=== PATIENT | female | born 1975 | race Caucasian/White ===

== ENCOUNTER 2020-12-09 14:49 | Inpatient (IN) ==
[2020-12-09] MEDS ORDERED: MoRPHine SULFATE 4 MG/ML 1 ML CARP\\VIAL IV STA (17:05)
[2020-12-09] MEDS ORDERED: SODIUM CHLORIDE 0.9% 1000ML 2,000 ML IV ONE (17:05)
[2020-12-09] MEDS ORDERED: KETOROLAC TROMETHAMINE 15 MG/ML VIAL IV ONE (17:05)
[2020-12-09] MEDS ORDERED: ONDANSETRON INJ 2 MG/ML 2 ML VIAL IV STA (17:05)
--- NOTE | 2020-12-09 17:15 | Emergency Department Note ---
Impression & Plan Appendicitis, Abdominal pain ED Provider Note NAME: MADDIE MONSIVAIS AGE: 45 SEX: F : 1975 ARRIVES VIA: Walk-In INFORMANT: Patient, ED PROVIDER(S): [facility] DO CHIEF COMPLAINT: abdominal pain HPI: Patient is a 45-year-old female who presents to the ER for lower abdominal pain. This has been present for the past 2 weeks. It is constant and described as a crampy pain. She admits to some nausea and last episode of vomiting was on Tuesday. Denies any headache or change in vision. No chest pain or shortness of breath. No dysuria, urgency, or frequency with exception of when she just urinated today she had some dysuria. No other exacerbating or remitting factors in regards to the abdominal pain. She has been taking Tylenol and Motrin. She has been using heating pad with minimal improvement. ROS: See above HPI for pertinent positives & negatives. A total of 10 systems reviewed and were otherwise negative. PAST MEDICAL HISTORY:See Below PAST SURGICAL HISTORY:See Below FAMILY HISTORY:See Below SOCIAL HISTORY:See Below HOME MEDICATIONS:See Below ALLERGIES:See Below VITALS:See Below PHYSICAL EXAMINATION: GENERAL: Sitting up in bed, alert, well appearing, well nourished, no distress, non-toxic EYE EXAM: normal conjunctiva. PERRL and EOM's grossly intact. OROPHARYNX: no exudate, no erythema, lips, buccal mucosa, and tongue normal and mucous membranes are moist NECK: supple, no nuchal rigidity, no adenopathy, non-tender LUNGS: Clear to auscultation. Normal chest wall mechanics HEART: no murmurs, S1 normal and S2 normal ABDOMEN: abdomen soft, non-tender, normo-active bowel sounds, no masses, no rebound or guarding. BACK: Back is symmetrical on inspection and there is no deformity, no midline tenderness, no CVA tenderness. SKIN: no rashes and no bruising UPPER EXTREMITIES: upper extremities are grossly normal. LOWER EXTREMITIES: No pitting edema. NEURO EXAM: Normal sensorium, cranial nerves II-XII grossly intact, normal speech, no gross weakness of arms, no gross weakness of legs. MEDICAL DECISION MAKING: Patient is a 45-year-old female who presents the ER for abdominal pain which been present for the past 2 weeks. IV was established blood work obtained. Labs show leukocytosis of 2000. No significant anemia. BMP with slightly elevated chloride. LFTs bilirubin was unremarkable. Lipase was normal. UA was contaminated. was negative. CT abdomen pelvis suggest a perforated appendicitis. She was given IV antibiotics. Updated bedside. Discussed with general surgery admitted for further work-up. Triage Nursing notes reviewed. Limited review of prior medical records performed Vital Signs: reviewed and remarkable for hypotensive Differential diagnosis: Differential diagnoses includes but is not limited to gastritis, peptic ulcer disease, GERD, gallbladder disease, pancreatitis, small bowel obstruction, acute coronary syndrome, pericarditis, ischemic bowel, irritable bowel disease, irritable bowel syndrome, appendicitis, diverticulitis, malignancy, hernia, urinary tract infection, torsion, perforation, trauma, infectious. ER treatment provided: See below Diagnostics interpreted by me: ECG: none Cardiac Monitoring: An order was placed for continuous cardiac monitoring. The monitor shows a rate of 82 with sinus rhythm. Laboratory studies: As stated above and show below. Imaging studies: CT abdomen pelvis suggest appendicitis Consultation(s): Discussed with Dewayne Barnhart for further evaluation Procedures: none Critical Care: None Past Med/Surg History Medical History Central obesity Insulin resistance Social History Smoking Status: Never smoker Hx Alcohol Use: No Preferred Language: Upper Sorbian Feels Safe at Home: Yes Allergies Allergies Allergy/AdvReac Type Severity Reaction Status Date / Time No Known Allergies Allergy Verified 11/30/19 10:39 Home Meds Home Medications Medication Instructions Recorded Confirmed norethindrone (contraceptive) 0.35 0.35 mg PO DAILY 11/29/19 11/29/19 mg tablet Results & Data (ED) Vital Signs Vital Signs - 24 hr 12/09/20 14:59 12/09/20 17:31 12/09/20 20:05 Temperature 36.5 C Temperature Source Temporal Artery Scan Pulse Rate 84 Pulse Rate [Finger] 86 Respiratory Rate 14 18 18 Blood Pressure 90/57 L Blood Pressure [Left Arm] 117/66 Blood Pressure Mean 68 Blood Pressure Mean [Left Arm] 83 Pulse Oximetry 99 96 Oxygen Delivery Method Room Air Sepsis Recent Fever Within 48 Hours No Sepsis New/Unexplained Change in Mental Status No Sepsis Action Taken by Nursing No Action Required Laboratory Data Result diagrams: 12/09/20 17:21 12/09/20 17:21 Lab Results 12/09/20 12/09/20 12/09/20 Range/Units 17:21 17:21 17:21 WBC 17.35 H (4.8-10.8) K/uL RBC 3.86 L (4.2-5.4) M/uL Hgb 12.7 (12.0-16.0) g/dL Hct 36.9 L (37-47) % MCV 95.6 (80-100) fL MCH 32.9 (25-34) pg MCHC 34.4 (32-36) g/dL RDW Std Deviation 44.1 (36.4-46.3) fL RDW Coeff of Scott 12.6 (11.5-14.5) % Plt Count 336 (130-400) K/uL MPV 10.2 (7.4-10.4) fL Immature Gran % (Auto) 0.3 % Neut % (Auto) 91.0 % Lymph % (Auto) 3.5 % [place] % (Auto) 5.1 % Eos % (Auto) 0.0 % Baso % (Auto) 0.1 % Neut # (Auto) 15.81 H (1.4-6.5) K/uL Lymph # (Auto) 0.60 L (1.2-3.4) K/uL [place] # (Auto) 0.88 H (0.11-0.59) K/uL Eos # (Auto) 0.00 (0-0.5) K/uL Baso # (Auto) 0.01 (0-0.2) K/uL Immature Gran # (Auto) 0.05 H (0.00-0.02) K/uL Sodium 138 (136-145) mmol/L Potassium 3.7 (3.5-5.1) mmol/L Chloride 111 H (98-107) mmol/L Carbon Dioxide 21 (21-32) mmol/L Anion Gap 6.0 (3-11) BUN 11 (7-18) mg/dl Creatinine 0.67 (0.6-1.2) mg/dl Est Cr Clr Drug Dosing Not Reportable Est GFR ( Amer) 123.9 ml/min Est GFR (Non-Af Amer) 106.9 ml/min BUN/Creatinine Ratio 16.8 (10-20) Glucose 108 H (70-99) mg/dl Calcium 8.8 (8.5-10.1) mg/dl Total Bilirubin 0.5 (0.2-1) mg/dl AST 7 L (15-37) U/L ALT 16 (12-78) U/L Alkaline Phosphatase 92 (45-117) U/L Total Protein 7.6 (6.4-8.2) gm/dl Albumin 3.5 (3.4-5.0) gm/dl Globulin 4.1 H (2.5-4.0) gm/dl Albumin/Globulin Ratio 0.8 L (0.9-2) Lipase 46 L (73-393) U/L Urine Color Dark Yellow Urine Appearance Clear (Clear) Urine pH 6.0 (4.5-7.5) Ur Specific [place] 1.030 (1.000-1.030) Urine Protein Negative (Negative) Urine Glucose (UA) Negative (Negative) Urine Ketones Trace H (Negative) Urine Blood 2+ H (Negative) Urine Nitrite Negative (Negative) Urine Bilirubin Negative (Negative) Urine Urobilinogen Negative (Negative) Ur Leukocyte Esterase Negative (Negative) Urine WBC (Auto) 10-30 H (0-5) /hpf Urine RBC (Auto) 10-30 H (0-4) /hpf U Hyaline Cast (Auto) 5-10 H (0-5) /lpf U Epithel Cells (Auto) >30 H (0-5) /lpf Urine Bacteria (Auto) 1+ H (Negative) Ur Renal Epithelial Cell Not Reportable POC Ur Test (NEG) COVID-19 Eval Order SARS-CoV-2 (PCR) (Negative) 12/09/20 12/09/20 12/09/20 Range/Units 19:50 19:50 Unknown WBC (4.8-10.8) K/uL RBC (4.2-5.4) M/uL Hgb (12.0-16.0) g/dL Hct (37-47) % MCV (80-100) fL MCH (25-34) pg MCHC (32-36) g/dL RDW Std Deviation (36.4-46.3) fL RDW Coeff of Scott (11.5-14.5) % Plt Count (130-400) K/uL MPV (7.4-10.4) fL Immature Gran % (Auto) % Neut % (Auto) % Lymph % (Auto) % [place] % (Auto) % Eos % (Auto) % Baso % (Auto) % Neut # (Auto) (1.4-6.5) K/uL Lymph # (Auto) (1.2-3.4) K/uL [place] # (Auto) (0.11-0.59) K/uL Eos # (Auto) (0-0.5) K/uL Baso # (Auto) (0-0.2) K/uL Immature Gran # (Auto) (0.00-0.02) K/uL Sodium (136-145) mmol/L Potassium (3.5-5.1) mmol/L Chloride (98-107) mmol/L Carbon Dioxide (21-32) mmol/L Anion Gap (3-11) BUN (7-18) mg/dl Creatinine (0.6-1.2) mg/dl Est Cr Clr Drug Dosing Est GFR ( Amer) ml/min Est GFR (Non-Af Amer) ml/min BUN/Creatinine Ratio (10-20) Glucose (70-99) mg/dl Calcium (8.5-10.1) mg/dl Total Bilirubin (0.2-1) mg/dl AST (15-37) U/L ALT (12-78) U/L Alkaline Phosphatase (45-117) U/L Total Protein (6.4-8.2) gm/dl Albumin (3.4-5.0) gm/dl Globulin (2.5-4.0) gm/dl Albumin/Globulin Ratio (0.9-2) Lipase (73-393) U/L Urine Color Urine Appearance (Clear) Urine pH (4.5-7.5) Ur Specific [place] (1.000-1.030) Urine Protein (Negative) Urine Glucose (UA) (Negative) Urine Ketones (Negative) Urine Blood (Negative) Urine Nitrite (Negative) Urine Bilirubin (Negative) Urine Urobilinogen (Negative) Ur Leukocyte Esterase (Negative) Urine WBC (Auto) (0-5) /hpf Urine RBC (Auto) (0-4) /hpf U Hyaline Cast (Auto) (0-5) /lpf U Epithel Cells (Auto) (0-5) /lpf Urine Bacteria (Auto) (Negative) Ur Renal Epithelial Cell POC Ur Test NEG (NEG) COVID-19 Eval Order Covid19 at [facility] SARS-CoV-2 (PCR) NEGATIVE (Negative) Administered Medications Discontinued Medications Sodium Chloride (Nss 1000ml) 2,000 mls @ 999 mls/hr IV .Q2H1M ONE Stop: 12/09/20 19:05 Last Infusion: 12/09/20 19:27 Dose: 0 mls/hr Documented by: [id number] Admin: 12/09/20 17:27 Dose: 999 mls/hr Documented by: [id number] Piperacillin Sod/Tazobactam Sod (Zosyn) 4.5 gm in 120 mls @ 240 mls/hr IV NOW ONE Stop: 12/09/20 19:59 Last Infusion: 12/09/20 20:33 Dose: 0 mls/hr Documented by: [id number] Admin: 12/09/20 20:03 Dose: 240 mls/hr Documented by: [id number] Ioversol (Optiray 320 100ml) 94 ml IV ONCE ONE Stop: 12/09/20 18:45 Last Admin: 12/09/20 18:44 Dose: 1 ml Documented by: [id number] Ketorolac Tromethamine (Ketorolac Tromethamine 15 Mg/Ml Vial) 15 mg IV NOW ONE Stop: 12/09/20 17:06 Last Admin: 12/09/20 17:28 Dose: 15 mg Documented by: [id number] Morphine Sulfate (Morphine Sulfate 4 Mg/Ml 1 Ml Carp\Vial) 4 mg IV NOW STA Stop: 12/09/20 17:06 Last Admin: 12/09/20 17:28 Dose: 4 mg Documented by: [id number] Ondansetron HCl (Ondansetron Inj 2 Mg/Ml 2 Ml Vial) 4 mg IV NOW STA Stop: 12/09/20 17:06 Last Admin: 12/09/20 17:28 Dose: 4 mg Documented by: [id number] Imaging Data Radiologist's Impression: Abdomen/Pelvis CT 12/09/20 17:05 CT abd pelvis IV con only CLINICAL HISTORY: diffuse lower abd pain COMPARISON STUDY: None. TECHNIQUE: Patient was scanned in a dynamic helical fashion during intravenous administration of 94 cc of Optiray 320 A dose lowering technique was utilized adhering to the principles of ALARA. CT DOSE: 676.47 mGy.cm FINDINGS: Lower chest: The heart is normal in size and configuration, without pericardial effusion. The lung bases and pleural spaces are clear. Liver: The contrast-enhanced liver is normal in size, contour, and attenuation. There is no intrahepatic biliary ductal dilatation. The hepatic veins and portal veins are patent. Gallbladder: Cholelithiasis Spleen: Minimally enlarged measuring 12.7 cm. Pancreas: Unremarkable. Adrenal glands: Unremarkable. Kidneys: There is symmetric renal cortical enhancement. The kidneys are normal in size without hydronephrosis. Bowel: There are no transition zones to indicate bowel obstruction. There is no evidence of acute diverticulitis. There is an ill-defined fluid collection within the upper pelvic central mesentery measuring 4 cm. This likely represents a phlegmon/developing abscess. This abuts a mildly dilated appendix measuring 9 mm. A perforated tip appendicitis must be considered. Surgical consultation recommended. There is mild thickening of the adjacent sigmoid bowel loops. This is likely reactive. Peritoneum: There is a small amount of free pelvic fluid, as well as fluid within the right adnexa. Vasculature: The abdominal aorta is normal in course and caliber. Adenopathy: None. Pelvic viscera: The bladder, and pelvic viscera are unremarkable. Skeletal structures: No destructive osseous lesions are seen. IMPRESSION: 1. Ill-defined 4 cm upper pelvic fluid collection which abuts a mildly dilated appendix measuring 9 mm. A perforated tip appendicitis with a developing phlegmo n/abscess must be considered. Surgical consultation recommended. 2. Cholelithiasis 3. No evidence of bowel obstruction. ACT 112: Negative or not required by law. Electronically signed by: Yifna Mackenzie M.D. 12/09/2020 7:24 PM Discharge Plan Visit Data Chief Complaint: Abdominal Pain Stated Complaint: ABDOMINAL PAIN, LIGHT HEADED, WEAKNESS, NAUSEA ED Provider: [facility] Discharge Problem: Appendicitis, Abdominal pain Forms Stand Alone Forms: LK FREEMAN Prescriptions Prescriptions: No Action norethindrone (contraceptive) [Gypsy] 0.35 mg tablet 0.35 mg PO DAILY RF: 0 Discharge Problem: Appendicitis Qualifiers: Appendicitis type: acute appendicitis Acute appendicitis type: other Qualified Code(s): K35.890 - Other acute appendicitis without perforation or gangrene Abdominal pain Qualifiers: Abdominal location: unspecified location Qualified Code(s): R10.9 - Unspecified abdominal pain
[2020-12-09 17:34] LABS: Hematocrit (blood only) 36.9 % (37-47); Hemoglobin 12.7 g/dL (12.0-16.0); Mean Corpuscular Hemoglobin 32.9 pg (25-34); Mean Corpuscular Hgb Conc 34.4 g/dL (32-36); Mean Corpuscular Volume 95.6 fL (80-100); Mean Platelet Volume 10.2 fL (7.4-10.4); Platelet Count 336 K/uL (130-400); RDW Coefficient of Variation 12.6 % (11.5-14.5); RDW Standard Deviation 44.1 fL (36.4-46.3); Red Blood Count 3.86 M/uL (4.2-5.4); White Blood Count 17.35 K/uL (4.8-10.8)
[2020-12-09 17:50] LABS: Basophils # (auto) 0.01 K/uL (0-0.2); Basophils % (auto) 0.1 %; Immature Granulocytes # (auto) 0.05 K/uL (0.00-0.02); Immature Granulocytes % (auto) 0.3 %; Lymphocytes % (auto) 3.5 %; Monocytes # (auto) 0.88 K/uL (0.11-0.59); Monocytes % (auto) 5.1 %; Neutrophils # (auto) 15.81 K/uL (1.4-6.5)
[2020-12-09 17:52] LABS: Appearance Urine Clear (Clear); Bilirubin Urine Negative (Negative); Blood Urine 2+ (Negative); Color Urine Dark Yellow; Epithelial Cell Urine Auto >30 /lpf (0-5); Glucose Urine UA Negative (Negative); Ketones Urine Trace (Negative); Leukocyte Esterase Urine Negative (Negative); Nitrite Urine Negative (Negative); Protein Urine Negative (Negative); Urobilinogen Urine Negative (Negative)
[2020-12-09 18:05] LABS: Albumin Level 3.5 gm/dl (3.4-5.0); BUN Creatinine Ratio 16.8 (10-20); Blood Urea Nitrogen 11 mg/dl (7-18); Calcium 8.8 mg/dl (8.5-10.1); Carbon Dioxide 21 mmol/L (21-32); Chloride 111 mmol/L (98-107); Est GFR (African American) 123.9 ml/min; Est GFR (Non-African American) 106.9 ml/min; Glucose 108 mg/dl (70-99); Lipase 46 U/L (73-393); Potassium 3.7 mmol/L (3.5-5.1); Sodium 138 mmol/L (136-145)
[2020-12-09 18:08] LABS: Alanine Aminotransferase 16 U/L (12-78); Albumin Globulin Ratio 0.8 (0.9-2); Alkaline Phosphatase 92 U/L (45-117); Aspartate Aminotransferase 7 U/L (15-37); Bilirubin,Total 0.5 mg/dl (0.2-1); Globulin 4.1 gm/dl (2.5-4.0); Total Protein 7.6 gm/dl (6.4-8.2)
[2020-12-09 18:17] LABS: Bacteria Urine Automated 1+ (Negative)
[2020-12-09] MEDS ORDERED: OPTIRAY 320 100ml IV ONE (18:44)
--- NOTE | 2020-12-09 19:25 | CT Scan Report ---
CT abd pelvis IV con only CLINICAL HISTORY: diffuse lower abd pain COMPARISON STUDY: None. TECHNIQUE: Patient was scanned in a dynamic helical fashion during intravenous administration of 94 c c of Optiray 320 A dose lowering technique was utilized adhering to the principles of ALARA. CT DOSE: 676.47 mGy.cm FINDINGS: Lower chest: The heart is normal in size and configuration, without pericardial effusion. The lung ba ses and pleural spaces are clear. Liver: The contrast-enhanced liver is normal in size, contour, and attenuation. There is no intrahepa tic biliary ductal dilatation. The hepatic veins and portal veins are patent. Gallbladder: Cholelithiasis Spleen: Minimally enlarged measuring 12.7 cm. Pancreas: Unremarkable. Adrenal glands: Unremarkable. Kidneys: There is symmetric renal cortical enhancement. The kidneys are normal in size without hydron ephrosis. Bowel: There are no transition zones to indicate bowel obstruction. There is no evidence of acute div erticulitis. There is an ill-defined fluid collection within the upper pelvic central mesentery measu ring 4 cm. This likely represents a phlegmon/developing abscess. This abuts a mildly dilated appendix measuring 9 mm. A perforated tip appendicitis must be considered. Surgical consultation recommended. There is mild thickening of the adjacent sigmoid bowel loops. This is likely reactive. Peritoneum: There is a small amount of free pelvic fluid, as well as fluid within the right adnexa. Vasculature: The abdominal aorta is normal in course and caliber. Adenopathy: None. Pelvic viscera: The bladder, and pelvic viscera are unremarkable. Skeletal structures: No destructive osseous lesions are seen. IMPRESSION: 1. Ill-defined 4 cm upper pelvic fluid collection which abuts a mildly dilated appendix measuring 9 m m. A perforated tip appendicitis with a developing phlegmon/abscess must be considered. Surgical cons ultation recommended. 2. Cholelithiasis 3. No evidence of bowel obstruction. ACT 112: Negative or not required by law. Electronically signed by: Yifan Mackenzie M.D. 12/09/2020 7:24 PM
[2020-12-09] MEDS ORDERED: PIPERACILL/TAZOBAC CONSULT ACTIVE PRN (19:30)
[2020-12-09] MEDS ORDERED: PIPERACILLIN/TAZOBACTAM 4.5 GM/120 ML BAG IV ONE (19:30)
--- NOTE | 2020-12-09 20:02 | History & Physical Report ---
Date of Service December 09, 2020 Assessment & Plan (1) Appendicitis: Will admit to hospital and proceed with appendectomy. Pt. has received abx, in the form of zosyn which will continue. Keep NPO until after surgery Will follow-up on results of COVID test Further recommendations will be based on operative findings and post-op course History of Present Illness Chief Complaint: Abdominal Pain Primary Care Provider: NO PCP 45 year old female presented to the ED due to abdominal pain x 2 weeks. She was seen in the ED at [place] where an US showed ovarian cysts. Her pain has persisted so she came to the ED at [facility]. Her pain is worse with movement. She has associated N/V. No fevers reported. She has had a prior laparoscopy, but no other abdominal surgeries. Her most recent oral intake was earlier this morning. In the ED, a Ct scan showed a dilated appendix with concern for perforation. Her WBC was 17.3. test was (-). COVID test is pending. At the time of my exam she was in no distress. Allergies Allergy/AdvReac Type Severity Reaction Status Date / Time No Known Allergies Allergy Verified 11/30/19 10:39 Home Medications Medication Instructions Recorded Confirmed Type norethindrone (contraceptive) 0.35 0.35 mg PO DAILY 11/29/19 11/29/19 History mg tablet Past Med/Surg History Medical History Central obesity Insulin resistance Social History Smoking Status: Never smoker Hx Alcohol Use: No Preferred Language: Wolof Feels Safe at Home: Yes Review of Systems Constitutional: + body aches; no fever and no chills Eyes: no diplopia Ear, Nose, Mouth, Throat: no ear pain Respiratory: no cough and no dyspnea Cardiovascular: no chest pain Gastrointestinal: + abdominal pain, + nausea and + vomiting Genitourinary: no dysuria Musculoskeletal: no back pain Integumentary: no rash Neurologic: no localized weakness Physical Exam Constitutional: well developed and well nourished; no acute distress Eyes: no conjunctival abnormality ENMT: Ears: no hearing impairment Neck: trachea midline Respiratory: normal respiratory effort; no respiratory distress and no labored breathing Cardiovascular: Rate/Rhythm: regular rate and regular rhythm Gastrointestinal (Abdomen): Percussion/Palpation: + abdomen tender (RLQ tenderness (+) rebound tenderness) and abdomen soft Musculoskeletal: no calf pain Skin: no rashes, warm and dry Neurologic: moves all extremities Psychiatric: A+Ox3, euthymic affect Results & Data Results & Data ([facility]) Vital Signs (Past 12 Hours) Vital Signs Temp Pulse Resp BP Pulse Ox 12/09/20 17:31 18 12/09/20 14:59 36.5 C 84 14 90/57 L 99 Supervising Physician Co-Signing Physician Notes as per Dewayne DELA CRUZ tenderness and rebound rlq ct scan noted plan lap appy possible open risk and complication explained to pt and SO all question answered including anticipated recovery time permit signed PG Care Time/CCT Total # of Minutes Spent Total Time Spent with Patient: Total time spent is greater than 50% in coordination of care (as documented) at patient's floor/unit and/or counseling patient: Coding Level of Care Code INT OBSERVATION CARE 70M LVL 3 Diagnoses Appendicitis K37
[2020-12-09] MEDS ORDERED: ePHEDrine sulfate 50 MG/ML AMP IV PRN (20:18)
[2020-12-09] MEDS ORDERED: ONDANSETRON INJ 2 MG/ML 2 ML VIAL IV PRN (20:18)
[2020-12-09] MEDS ORDERED: fentaNYL citrate 100 MCG/2 ML VIAL IV PRN (20:18)
[2020-12-09] MEDS ORDERED: ATROPINE SULFATE 0.1 MG/ML 10ML SYR IV PRN (20:18)
--- NOTE | 2020-12-09 20:19 | Anesthesiology Consultation ---
Date of Service December 09, 2020 Assessment & Plan (1) Encounter for pre-operative examination: Chart Review Chart Review: maintenance shop manager initiated History Height/Weight Height: 5 ft 4 in Weight: 81.647 kg Allergies Allergy/AdvReac Type Severity Reaction Status Date / Time No Known Allergies Allergy Verified 11/30/19 10:39 Medications Home Medications Medication Instructions Recorded Confirmed Last Taken norethindrone (contraceptive) 0.35 0.35 mg PO DAILY 11/29/19 11/29/19 Unknown mg tablet Past Medical History Medical History Central obesity Insulin resistance Social History Smoking Status: Never smoker Hx Alcohol Use: No Physical Exam Vital Signs Last Vital Signs Temp 97.7 F 12/09/20 14:59 Pulse 86 12/09/20 20:05 Resp 18 12/09/20 20:05 BP 117/66 12/09/20 20:05 Pulse Ox 96 12/09/20 20:05 Testing Laboratory Results 12/09/20 17:21 12/09/20 17:21 Urine Color Dark Yellow 12/09/20 17:21 Urine Appearance Clear (Clear) 12/09/20 17:21 Urine pH 6.0 (4.5-7.5) 12/09/20 17:21 Ur Specific [place] 1.030 (1.000-1.030) 12/09/20 17:21 Urine Protein Negative (Negative) 12/09/20 17:21 Urine Glucose (UA) Negative (Negative) 12/09/20 17:21 Urine Ketones Trace (Negative) H 12/09/20 17:21 Urine Nitrite Negative (Negative) 12/09/20 17:21 Ur Leukocyte Esterase Negative (Negative) 12/09/20 17:21 Urine WBC (Auto) 10-30 /hpf (0-5) H 12/09/20 17:21 Urine RBC (Auto) 10-30 /hpf (0-4) H 12/09/20 17:21 U Hyaline Cast (Auto) 5-10 /lpf (0-5) H 12/09/20 17:21 U Epithel Cells (Auto) >30 /lpf (0-5) H 12/09/20 17:21 Urine Bacteria (Auto) 1+ (Negative) H 12/09/20 17:21 12/09/20 Unknown POC Ur Test NEG
[2020-12-09] MEDS ORDERED: PROPOFOL IV EMULSION 10 MG/ML 20 ML VIAL IV ONE (20:31)
[2020-12-09] MEDS ORDERED: LIDOCAINE 2% 2 ML VIAL/AMP(20MG/ML) INFIL ONE (20:31)
[2020-12-09] MEDS ORDERED: fentaNYL citrate 100 MCG/2 ML VIAL ONE ×3 (20:31→22:50)
[2020-12-09] MEDS ORDERED: LIDOCAINE/EPINEPHRINE 1% 20 ML VIAL ONE ×2 (21:36→21:45)
[2020-12-09] MEDS ORDERED: DEXAMETHASONE SOD INJ 4 MG/ML VIAL ONE (21:49)
[2020-12-09] MEDS ORDERED: HYDROmorphone INJ 2 MG/ML SYR/VIAL ONE (22:18)
[2020-12-09] MEDS ORDERED: ROCURONIUM BROMIDE 10 MG/ML 5 ML VIAL IV ONE (23:41)
[2020-12-09] MEDS ORDERED: GLYCOPYRROLATE 0.2 MG/ML VIAL ONE (23:42)
[2020-12-09] MEDS ORDERED: ONDANSETRON INJ 2 MG/ML 2 ML VIAL ONE (23:42)
[2020-12-09] MEDS ORDERED: NEOSTIGMINE METHYLSULFATE 1 MG/ML 10ML VIAL ONE (23:42)
--- NOTE | 2020-12-09 23:57 | Post Operative Brief Note ---
PG Immediate Post Op with CF Date of Surgery December 09, 2020 Pre & Post Diagnosis Operation Date: 12/09/20 21:15 Pre-Op Diagnosis: Appendicitis Post-Op Diagnosis: Ruptured appendix I identified the patient and participated in the time-out.: Yes Procedure Operation Date: 12/09/20 21:15 Actual Procedures p Laparoscopic Appendectomy, converted to Open Cecectomy(Not Applicable) - Owen Leon MD, FACS Surgeon Owen Leon MD, FACS Corrections Unit Supervisor chey bose Estimated Blood Loss 200 Findings Consistent with Post-Op Diagnosis Specimens Specimen Description: A: appendix B: terminal ileum and cecum Culture 1 abdominal fluid Drains Cr-[place] Drain (19 lolita) and Wan Drain (1/2 inch)
--- NOTE | 2020-12-10 00:31 | Operative Report ---
PG Post Operative Report Pre & Post Diagnosis Operation Date: 12/09/20 21:15 Pre-Op Diagnosis: Appendicitis Post-Op Diagnosis: Ruptured appendix I identified the patient and participated in the time-out.: Yes Procedure Operation Date: 12/09/20 21:15 Actual Procedures p Laparoscopic Appendectomy, converted to Open Cecectomy(Not Applicable) - Owen Leon MD, FACS The patient was brought into the operative field general trach anesthesia supine position the abdomen was prepped byline solution properly draped systemic antibiotics on board patient identified timeout was had This pleasant 45-year-old female had been seen in [place] 2 weeks ago for abdominal pain at that time a CAT scan was not obtained but ultrasound revealed some ovarian cyst and asked that she follow-up with her balance clerk an appointment for December 29 in meantime the patient has progressively became more symptomatic was seen here in the emergency room and a CAT scan revealed what appeared finding with ruptured appendix with inflammatory changes and some fluid around the area therefore elected to proceed with laparoscopic appendectomy recommendation possible open permit a small incision supraumbilically sufficient enough for 5 mm trocar after a Veress needle inserted followed by CO2 5 mm trocar followed by the scope point of interest bacteroids identified we could see the right lower quadrant could see the cecum up and down towards the pelvic area the uterus was easily appreciated and appear to be some cloudy fluid adjacent to it where the cul-de-sac. Also it seems like that the cecum itself in the terminal ileum was strictly adherent to the right lower quadrant direct visualization I placed a 5 mm right upper quadrant port with preemptive local analgesic and converted the umbilical port to 11 mm trocar and direct visualization then placed a 5 mm trocar in the pelvic area correction between the symphysis pubis and umbilical area these are all under direct visualization the camera was placed in this port we maneuvered with the umbilical trocar right upper trocar the cecum was able to identify the takeoff of the appendix with that apparently grossly normal then the appendix tip down towards the the gutter and the terminal ileum was strictly adherent to that area had a thick inflammatory fatty tissue around this terminal ileum down into this gutter we then tried to first well created a window between the cecum and the appendix which was easily appreciated and then fired a a purple DEONNA at the base the appendix from the cecum which had good tissue was nonfriable but at this point we then obtained her attention towards the distal aspect of this inflammatory mass we irrigated the right lower quadrant and placed in the [place] clamp and took some cultures of the fluid and we spent a good portion to try to free up bluntly the terminal ileum from the pelvic brim could identify the ovary which was way underneath it and appeared free of any pathology but this area was concrete in nature we could not maneuver it very easily therefore I elected to converted to an open procedure after trying to manipulate this with some time with little gain we made a standard right lower quadrant incision at [facility]'s point Emil-Herbie incision then needed to have a Nik extension patient had about 4 inches of subcutaneous fatty tissue until we got to the abdominal wall at this point with muscle split as much as possible entering the peritoneal cavity and using the Tiago Lynn Deavers we are able to enter the peritoneal cavity we mobilized the cecum by dividing the white line of Told[place] and able to elevated out of the wound with this came to the terminal ileum which is stated was quite inflamed and its takeoff from the cecum but blunt dissection down into the gutter and the pelvic brim this was concrete in nature we then were able to elevate up the terminal ileum and the cecum out of the wound and identified that the terminal ileum was part of this inflammatory mass very indurated there was an area there I was not sure if this was ischemic in nature just by freeing it up but the terminal ileum was quite thickened and I was worried about the the vasculature at this time even though we had not entered the lumen I elected at this point then to remove the appendix what ever was left of it and then resected the terminal ileum approximately 6 inches or so from the ileocecal valve and an area that was free of any inflammation of note this did not appear to be anywhere resembles her Crohn's disease and seem to be all inflammation related to the appendix and free freed up the terminal ileum up to the cecal area I divided the mesentery ligated with 2-0 silk sutures and resected the cecum just to the distal of the ileocecal valve we used the DEONNA stapler of these 2 areas we at this point closed the mesentery with interrupted 3-0 silk suture oversewed the 2 staple line with 3-0 silk suture into the [id number] an astomosis using 3-0 silk outer layer 3-0 chromic inner layer and hemostasis anastomosis was checked for patency appears satisfactory mesentery was closed we return everything in the abdominal cavity we irrigated the pelvic then I elected to drain this area with a [place] drain which was bilateral superior lateral to the incision placed on the pelvic area attaching skin edge with 2-0 silk suture we then closed the abdominal wound incision using 905 for posterior rectus and peritoneum #1 PDS interrupted sutures for the internal Bleich and external Bleich fascia anterior rectus fascia subcutaneous tissue irrigated 5/8 of an inch [place] was placed in the subcu touch both edge with 3-0 silk suture julián for skin edges and closed the umbilical opening with #0 Vicryl suture interrupted sutures and julián for skin edges dressing was applied procedure was tolerated well by the patient estimate blood loss approximately 150 cc patient was taken recovery room in good condition addendum Chey [place]ote physician chemistry research assistant was present throughout the whole case and helped the retraction exposure and wound closure Surgeon Owen Leon MD, FACS Early Education Teacher [place] Estimated Blood Loss 200 Findings Consistent with Post-Op Diagnosis Specimens ileum and appendix Description of Procedure merda I attest to the content of the Intraoperative Record and any orders documented therein. Any exceptions are noted below.
--- NOTE | 2020-12-10 00:41 | Anesthesiology Progress Note ---
Date of Service December 10, 2020 Anesthesia Post Procedure Vital Signs Vital Signs: Temp Pulse Pulse Resp BP BP Pulse Ox 12/10/20 00:30 99.1 F 81 15 126/80 99 12/10/20 00:20 98.8 F 78 13 118/69 99 12/09/20 20:05 86 18 117/66 96 12/09/20 17:31 18 12/09/20 14:59 97.7 F 84 14 90/57 L 99 Pain Intensity Upper Abdomen: Pain Intensity: 5 Transfer of Care Handoff Completed per policy Notes Mental Status: alert / awake / arousable and participated in evaluation Patient Amnestic to Procedure: Yes Nausea / Vomiting: adequately controlled Pain: adequately controlled Airway Patency, RR, SpO2: stable & adequate BP & HR: stable & adequate Hydration State: stable & adequate Anesthetic Complications: no major complications apparent and Pt Satisfied with anesthetic care
[2020-12-10] MEDS ORDERED: PIPERACILL/TAZOBAC CONSULT ACTIVE PRN (01:34)
[2020-12-10] MEDS ORDERED: PIPERACILLIN/TAZOBACTAM 4.5 GM in DEXTROSE 5% 100 ML IV SCH ×2 (01:34→02:00)
[2020-12-10] MEDS ORDERED: ONDANSETRON INJ 2 MG/ML 2 ML VIAL IV PRN (01:34)
[2020-12-10] MEDS: LACTATED RINGER'S 1,000 ML IV SCH ×3 (01:38→17:56)
[2020-12-10] MEDS: ACETAMINOPHEN 1,000 MG/100 ML VIAL IV SCH ×3 (02:02→17:32)
[2020-12-10 06:38] LABS: Hematocrit (blood only) 34.7 % (37-47); Hemoglobin 11.5 g/dL (12.0-16.0); Mean Corpuscular Hemoglobin 32.3 pg (25-34); Mean Corpuscular Volume 97.5 fL (80-100); Mean Platelet Volume 10.3 fL (7.4-10.4); Platelet Count 335 K/uL (130-400); RDW Coefficient of Variation 12.7 % (11.5-14.5); RDW Standard Deviation 45.7 fL (36.4-46.3); Red Blood Count 3.56 M/uL (4.2-5.4); White Blood Count 19.13 K/uL (4.8-10.8)
[2020-12-10 06:39] LABS: Mean Corpuscular Hgb Conc 33.1 g/dL (32-36)
[2020-12-10 07:08] LABS: BUN Creatinine Ratio 13.1 (10-20); Calcium 8.2 mg/dl (8.5-10.1); Creatinine Clr Calc Pharmacy 121.6 ml/min; Est GFR (African American) 127.8 ml/min; Est GFR (Non-African American) 110.3 ml/min; Potassium 3.9 mmol/L (3.5-5.1)
[2020-12-10 07:17] LABS: Immature Granulocytes # (auto) 0.05 K/uL (0.00-0.02); Immature Granulocytes % (auto) 0.3 %; Lymphocytes # (auto) 0.56 K/uL (1.2-3.4); Lymphocytes % (auto) 2.9 %; Monocytes % (auto) 4.2 %; Neutrophils # (auto) 17.72 K/uL (1.4-6.5); Neutrophils % (auto) 92.6 %
--- NOTE | 2020-12-10 08:18 | Surgery Progress Note ---
Date of Service December 10, 2020 Assessment & Plan (1) Appendicitis: POD#0 laparoscopic converted to open cecectomy WBC 19, afebrile, VSS NGT with minimal output. Will keep for now, but consider removing later today Continue IV zosyn, IVF, TORSTEN drain(25cc serosang) Admission and Anticipated Discharge Date Admission Date: December 10, 2020 Subjective Patient resting this AM. Is bothered some by the NGT. Pain is tolerable at rest, but made worse with movements. She denies n/v. She is voiding. Physical Exam Physical Exam: awake/alert, no acute distress Respiratory: normal respiratory effort, lungs clear to auscultation Gastrointestinal (Abdomen): soft, non distended, some expected rosamaria-incisional ttp. Surgical dressings c/d/i. TORSTEN Drain serosang. Results & Data ([facility]) Vital Signs (Past 12 Hours) Vital Signs Temp Pulse Resp BP BP Pulse Ox 12/10/20 04:24 36.7 C 87 15 118/75 95 12/10/20 03:20 36.7 C 58 L 15 109/68 96 12/10/20 02:15 36.8 C 89 16 114/94 94 12/10/20 01:40 36.4 C L 61 18 105/67 93 12/10/20 01:16 37.2 C 89 16 115/76 94 12/10/20 01:00 37.3 C 70 15 123/60 94 12/10/20 00:50 37.3 C 81 14 125/73 92 12/10/20 00:40 37.3 C 89 15 131/72 92 12/10/20 00:30 37.3 C 81 15 126/80 99 12/10/20 00:20 37.1 C 78 13 118/69 99 PG Care Time/CCT Total # of Minutes Spent Total Time Spent with Patient: Total time spent is greater than 50% in coordination of care (as documented) at patient's floor/unit and/or counseling patient: Coding Level of Care Code None Diagnoses Appendicitis K35.890 Acute appendicitis type: other Appendicitis type: acute appendicitis (1) Appendicitis Acute appendicitis type: other Appendicitis type: acute appendicitis Qualified Code(s): K35.890 - Other acute appendicitis without perforation or gangrene
[2020-12-10] MEDS: PIPERACILLIN/TAZOBACTAM 3.375 GM in DEXTROSE 5% 100 ML IV SCH ×2 (10:23→17:55)
[2020-12-10] MEDS: MoRPHine SULFATE 4 MG/ML 1 ML CARP\\VIAL IV PRN ×3 (14:08→22:24)
[2020-12-11] MEDS: LACTATED RINGER'S 1,000 ML IV SCH ×2 (00:57→08:08)
[2020-12-11] MEDS: ACETAMINOPHEN 1,000 MG/100 ML VIAL IV SCH ×3 (01:00→16:33)
[2020-12-11] MEDS: PIPERACILLIN/TAZOBACTAM 3.375 GM in DEXTROSE 5% 100 ML IV SCH ×3 (01:00→16:49)
--- NOTE | 2020-12-11 07:17 | Surgery Progress Note ---
Date of Service December 11, 2020 Assessment & Plan (1) Abdominal pain: Plan: Approximately 36 hours postop laparoscopic appendectomy converted to an open procedure with ileocecectomy Plan is to leave the NG tube in still some bowel activity returns DVT prophylaxis with heparin started Increase her activity Admission and Anticipated Discharge Date Admission Date: December 10, 2020 Subjective No major complaints feels better than yesterday pain under control Physical Exam Physical Exam: Alert coherent NG tube in place bilious drainage amount noted Oropharyngeal area moist The abdomen is soft with expected discomfort in the operative field the fiona ssings is dry Nilton drainage serosanguineous minimal Results & Data ([facility]) Vital Signs (Past 12 Hours) Vital Signs Temp Pulse Resp BP Pulse Ox 12/11/20 04:05 37 C 78 20 118/77 96 12/10/20 22:55 37.2 C 78 15 115/69 94 PG Care Time/CCT Total # of Minutes Spent Total Time Spent with Patient: Total time spent is greater than 50% in coordination of care (as documented) at patient's floor/unit and/or counseling patient: Coding Level of Care Code None Diagnoses Abdominal pain R10.9 Abdominal location: unspecified location (1) Abdominal pain Abdominal location: unspecified location Qualified Code(s): R10.9 - Unspecified abdominal pain
[2020-12-11 07:18] LABS: Basophils # (auto) 0.01 K/uL (0-0.2); Basophils % (auto) 0.1 %; Eosinophils # (auto) 0.02 K/uL (0-0.5); Eosinophils % (auto) 0.1 %; Hematocrit (blood only) 30.5 % (37-47); Hemoglobin 10.1 g/dL (12.0-16.0); Immature Granulocytes # (auto) 0.05 K/uL (0.00-0.02); Immature Granulocytes % (auto) 0.4 %; Lymphocytes # (auto) 1.43 K/uL (1.2-3.4); Lymphocytes % (auto) 10.6 %; Mean Corpuscular Hemoglobin 31.5 pg (25-34); Mean Corpuscular Hgb Conc 33.1 g/dL (32-36); Mean Platelet Volume 9.9 fL (7.4-10.4); Monocytes # (auto) 0.88 K/uL (0.11-0.59); Monocytes % (auto) 6.5 %; Neutrophils # (auto) 11.05 K/uL (1.4-6.5); Neutrophils % (auto) 82.3 %; Platelet Count 291 K/uL (130-400); RDW Coefficient of Variation 12.9 % (11.5-14.5); RDW Standard Deviation 44.7 fL (36.4-46.3); Red Blood Count 3.21 M/uL (4.2-5.4); White Blood Count 13.44 K/uL (4.8-10.8)
[2020-12-11 07:45] LABS: BUN Creatinine Ratio 14.2 (10-20); Calcium 8.2 mg/dl (8.5-10.1); Creatinine Clr Calc Pharmacy 137.4 ml/min; Est GFR (Non-African American) 114.8 ml/min; Potassium 3.3 mmol/L (3.5-5.1)
[2020-12-11] MEDS: MoRPHine SULFATE 4 MG/ML 1 ML CARP\\VIAL IV PRN ×2 (07:52→21:33)
[2020-12-11] MEDS: HEPARIN SOD 5,000 UNIT/0.5 ML VIAL SQ SCH ×2 (08:07→20:21)
[2020-12-11] MEDS: D5W AND 1/2NSS + 20MEQ KCL 20 MEQ/1,000 ML BAG IV SCH ×2 (09:18→16:33)
[2020-12-11] MEDS: POTASSIUM CHLORIDE / WTR 10 MEQ/100 ML PLCT IV SCH ×2 (09:18→10:51)
[2020-12-12] MEDS: D5W AND 1/2NSS + 20MEQ KCL 20 MEQ/1,000 ML BAG IV SCH ×3 (00:25→17:04)
[2020-12-12] MEDS: PIPERACILLIN/TAZOBACTAM 3.375 GM in DEXTROSE 5% 100 ML IV SCH ×3 (01:55→17:34)
[2020-12-12] MEDS: ACETAMINOPHEN 1,000 MG/100 ML VIAL IV SCH ×3 (01:56→17:05)
--- NOTE | 2020-12-12 06:51 | Surgery Progress Note ---
Date of Service December 12, 2020 Assessment & Plan (1) Appendicitis: Plan: We will remove the NG tube started on clear liquids Continue with antibiotic therapy advance diet once her GI function returns Admission and Anticipated Discharge Date Admission Date: December 10, 2020 Subjective Feels much better than yesterday states feeling some rumbling in her intestine pain in her belly is better Physical Exam Physical Exam: Alert coherent sitting in bed comfortably Minimal NG output The abdomen is soft is nontender dressings are dry minimal Nilton drainage serosanguineous Results & Data ([facility]) Vital Signs (Past 12 Hours) Vital Signs Temp Pulse Resp BP Pulse Ox 12/12/20 02:21 37 C 81 16 116/75 95 12/11/20 22:39 37.2 C 92 H 14 116/74 95 PG Care Time/CCT Total # of Minutes Spent Total Time Spent with Patient: Total time spent is greater than 50% in coordination of care (as documented) at patient's floor/unit and/or counseling patient: Coding Level of Care Code None Diagnoses Appendicitis K35.890 Acute appendicitis type: other Appendicitis type: acute appendicitis (1) Appendicitis Acute appendicitis type: other Appendicitis type: acute appendicitis Qualified Code(s): K35.890 - Other acute appendicitis without perforation or gangrene
[2020-12-12 08:11] LABS: Basophils # (auto) 0.01 K/uL (0-0.2); Basophils % (auto) 0.1 %; Eosinophils # (auto) 0.06 K/uL (0-0.5); Eosinophils % (auto) 0.4 %; Hematocrit (blood only) 32.7 % (37-47); Hemoglobin 11.1 g/dL (12.0-16.0); Immature Granulocytes # (auto) 0.05 K/uL (0.00-0.02); Immature Granulocytes % (auto) 0.3 %; Lymphocytes # (auto) 1.07 K/uL (1.2-3.4); Lymphocytes % (auto) 6.3 %; Mean Corpuscular Hemoglobin 32.7 pg (25-34); Mean Corpuscular Hgb Conc 33.9 g/dL (32-36); Mean Corpuscular Volume 96.5 fL (80-100); Mean Platelet Volume 9.7 fL (7.4-10.4); Monocytes % (auto) 6.4 %; Neutrophils # (auto) 14.83 K/uL (1.4-6.5); Neutrophils % (auto) 86.5 %; Platelet Count 346 K/uL (130-400); RDW Coefficient of Variation 12.7 % (11.5-14.5); RDW Standard Deviation 44.7 fL (36.4-46.3); Red Blood Count 3.39 M/uL (4.2-5.4); White Blood Count 17.12 K/uL (4.8-10.8)
[2020-12-12] MEDS: HEPARIN SOD 5,000 UNIT/0.5 ML VIAL SQ SCH ×2 (08:26→22:13)
[2020-12-12 08:53] LABS: BUN Creatinine Ratio 9.9 (10-20); Calcium 8.5 mg/dl (8.5-10.1); Creatinine Clr Calc Pharmacy 161.3 ml/min; Est GFR (African American) 140.2 ml/min; Potassium 3.7 mmol/L (3.5-5.1)
[2020-12-13] MEDS: ACETAMINOPHEN 1,000 MG/100 ML VIAL IV SCH ×3 (01:36→17:46)
[2020-12-13] MEDS: PIPERACILLIN/TAZOBACTAM 3.375 GM in DEXTROSE 5% 100 ML IV SCH ×3 (01:37→18:15)
[2020-12-13] MEDS: D5W AND 1/2NSS + 20MEQ KCL 20 MEQ/1,000 ML BAG IV SCH ×3 (02:01→18:45)
[2020-12-13 06:05] LABS: Basophils # (auto) 0.02 K/uL (0-0.2); Basophils % (auto) 0.2 %; Eosinophils # (auto) 0.15 K/uL (0-0.5); Eosinophils % (auto) 1.1 %; Hematocrit (blood only) 29.1 % (37-47); Hemoglobin 9.8 g/dL (12.0-16.0); Immature Granulocytes # (auto) 0.06 K/uL (0.00-0.02); Immature Granulocytes % (auto) 0.5 %; Lymphocytes # (auto) 1.97 K/uL (1.2-3.4); Mean Corpuscular Hemoglobin 31.5 pg (25-34); Mean Corpuscular Hgb Conc 33.7 g/dL (32-36); Mean Corpuscular Volume 93.6 fL (80-100); Mean Platelet Volume 9.4 fL (7.4-10.4); Monocytes # (auto) 1.03 K/uL (0.11-0.59); Monocytes % (auto) 7.8 %; Neutrophils % (auto) 75.4 %; Platelet Count 342 K/uL (130-400); RDW Coefficient of Variation 12.4 % (11.5-14.5); RDW Standard Deviation 42.2 fL (36.4-46.3); Red Blood Count 3.11 M/uL (4.2-5.4); White Blood Count 13.13 K/uL (4.8-10.8)
[2020-12-13 06:41] LABS: BUN Creatinine Ratio 9.3 (10-20); Calcium 8.1 mg/dl (8.5-10.1); Creatinine Clr Calc Pharmacy 172.6 ml/min; Est GFR (African American) 143.4 ml/min; Est GFR (Non-African American) 123.7 ml/min; Potassium 3.5 mmol/L (3.5-5.1)
[2020-12-13] MEDS: HEPARIN SOD 5,000 UNIT/0.5 ML VIAL SQ SCH ×2 (08:35→20:25)
--- NOTE | 2020-12-13 10:03 | Surgery Progress Note ---
Date of Service December 13, 2020 Assessment & Plan (1) Appendicitis: Plan: s/p open cecectomy. Doing well. Advance diet to full liquids. Keep TORSTEN for now. On antibiotics. Present on Admission?: Yes Admission and Anticipated Discharge Date Admission Date: December 10, 2020 Subjective Feels better. Walking in room. Pain controlled. Had 4 loose bowel movements. No nausea with clears. Physical Exam Constitutional: WD/WN, vitals as above Respiratory: normal respiratory effort, lungs clear to auscultation Cardiovascular: RRR, no murmur, no edema Gastrointestinal (Abdomen): Inspection/Auscultation: abdomen normal to inspection, normal bowel sounds, + abdominal surgical incision (clean and intact, slight serosanguinous drainage) and + abdominal surgical drain present (serosanguinous) Percussion/Palpation: + abdomen tender (around incision) and abdomen soft; no guarding Results & Data ([facility]) Vital Signs (Past 12 Hours) Vital Signs Temp Pulse Resp BP Pulse Ox 12/13/20 07:25 36.7 C 60 16 110/70 95 12/12/20 22:40 36.9 C 74 16 111/75 100 (1) Appendicitis Acute appendicitis type: other Appendicitis type: acute appendicitis Qualified Code(s): K35.890 - Other acute appendicitis without perforation or g angrene
[2020-12-14] MEDS: ACETAMINOPHEN 1,000 MG/100 ML VIAL IV SCH ×3 (01:47→17:24)
[2020-12-14] MEDS: D5W AND 1/2NSS + 20MEQ KCL 20 MEQ/1,000 ML BAG IV SCH ×3 (02:10→17:25)
[2020-12-14] MEDS: PIPERACILLIN/TAZOBACTAM 3.375 GM in DEXTROSE 5% 100 ML IV SCH ×3 (02:10→17:25)
[2020-12-14 06:36] LABS: Basophils # (auto) 0.02 K/uL (0-0.2); Basophils % (auto) 0.2 %; Eosinophils % (auto) 1.7 %; Hematocrit (blood only) 29.8 % (37-47); Hemoglobin 9.9 g/dL (12.0-16.0); Immature Granulocytes # (auto) 0.08 K/uL (0.00-0.02); Immature Granulocytes % (auto) 0.7 %; Lymphocytes # (auto) 2.18 K/uL (1.2-3.4); Lymphocytes % (auto) 18.5 %; Mean Corpuscular Hemoglobin 31.3 pg (25-34); Mean Corpuscular Hgb Conc 33.2 g/dL (32-36); Mean Corpuscular Volume 94.3 fL (80-100); Mean Platelet Volume 9.3 fL (7.4-10.4); Monocytes # (auto) 0.71 K/uL (0.11-0.59); Neutrophils # (auto) 8.62 K/uL (1.4-6.5); Neutrophils % (auto) 72.9 %; Platelet Count 366 K/uL (130-400); RDW Coefficient of Variation 12.4 % (11.5-14.5); RDW Standard Deviation 42.3 fL (36.4-46.3); Red Blood Count 3.16 M/uL (4.2-5.4); White Blood Count 11.81 K/uL (4.8-10.8)
[2020-12-14 07:13] LABS: BUN Creatinine Ratio 8.3 (10-20); Creatinine Clr Calc Pharmacy 145.5 ml/min; Est GFR (African American) 135.5 ml/min; Est GFR (Non-African American) 116.9 ml/min; Potassium 3.9 mmol/L (3.5-5.1)
[2020-12-14] MEDS: HEPARIN SOD 5,000 UNIT/0.5 ML VIAL SQ SCH ×2 (09:24→21:10)
--- NOTE | 2020-12-14 10:24 | Surgery Progress Note ---
Date of Service December 14, 2020 Assessment & Plan (1) Appendicitis: Plan: s/p open cecectomy. Doing well. Leukocytosis continues to improve. Advance diet to low fiber.. Keep TORSTEN for now. On antibiotics. Admission and Anticipated Discharge Date Admission Date: December 10, 2020 Subjective Feels well. Had another bowel movement this morning. Notes cramping at time of BM, otherwise pain well controlled. No nausea. Physical Exam Constitutional: WD/WN, vitals as above Respiratory: normal respiratory effort, lungs clear to auscultation Cardiovascular: RRR, no murmur, no edema Gastrointestinal (Abdomen): Inspection/Auscultation: abdomen normal to inspection, normal bowel sounds, + abdominal surgical incision (clean and intact, slight serosanguinous drainage) and + abdominal surgical drain present (serosanguinous) Percussion/Palpation: abdomen soft; abdomen nontender and no guarding Results & Data ([facility]) Vital Signs (Past 12 Hours) Vital Signs Temp Pulse Resp BP Pulse Ox 12/14/20 07:20 36.7 C 76 16 113/77 100 12/13/20 23:26 37 C 79 16 105/69 99 Laboratory Results Abnormal lab results 12/14/20 12/14/20 Range/Units 06:10 06:10 WBC 11.81 H (4.8-10.8) K/uL RBC 3.16 L (4.2-5.4) M/uL Hgb 9.9 L (12.0-16.0) g/dL Hct 29.8 L (37-47) % Neut # (Auto) 8.62 H (1.4-6.5) K/uL [place] # (Auto) 0.71 H (0.11-0.59) K/uL Immature Gran # (Auto) 0.08 H (0.00-0.02) K/uL Chloride 110 H (98-107) mmol/L BUN 4 L (7-18) mg/dl Creatinine 0.51 L (0.6-1.2) mg/dl BUN/Creatinine Ratio 8.3 L (10-20) Glucose 108 H (70-99) mg/dl Calcium 8.0 L (8.5-10.1) mg/dl (1) Appendicitis Acute appendicitis type: other Appendicitis type: acute appendicitis Qualified Code(s): K35.890 - Other acute appendicitis without perforation or gangrene
[2020-12-15] MEDS: ACETAMINOPHEN 1,000 MG/100 ML VIAL IV SCH (01:38)
[2020-12-15] MEDS: D5W AND 1/2NSS + 20MEQ KCL 20 MEQ/1,000 ML BAG IV SCH (01:38)
[2020-12-15] MEDS: PIPERACILLIN/TAZOBACTAM 3.375 GM in DEXTROSE 5% 100 ML IV SCH ×2 (02:03→09:14)
[2020-12-15 06:04] LABS: Basophils # (auto) 0.03 K/uL (0-0.2); Basophils % (auto) 0.2 %; Eosinophils # (auto) 0.24 K/uL (0-0.5); Eosinophils % (auto) 1.9 %; Hematocrit (blood only) 29.2 % (37-47); Hemoglobin 9.8 g/dL (12.0-16.0); Immature Granulocytes # (auto) 0.17 K/uL (0.00-0.02); Immature Granulocytes % (auto) 1.3 %; Lymphocytes # (auto) 2.66 K/uL (1.2-3.4); Lymphocytes % (auto) 20.8 %; Mean Corpuscular Hemoglobin 31.5 pg (25-34); Mean Corpuscular Hgb Conc 33.6 g/dL (32-36); Mean Corpuscular Volume 93.9 fL (80-100); Mean Platelet Volume 9.3 fL (7.4-10.4); Monocytes # (auto) 1.05 K/uL (0.11-0.59); Monocytes % (auto) 8.2 %; Neutrophils # (auto) 8.65 K/uL (1.4-6.5); Neutrophils % (auto) 67.6 %; Platelet Count 385 K/uL (130-400); RDW Coefficient of Variation 12.4 % (11.5-14.5); RDW Standard Deviation 42.1 fL (36.4-46.3); Red Blood Count 3.11 M/uL (4.2-5.4)
[2020-12-15 06:28] LABS: BUN Creatinine Ratio 7.5 (10-20); Calcium 8.4 mg/dl (8.5-10.1); Creatinine Clr Calc Pharmacy 125.8 ml/min; Est GFR (African American) 129.2 ml/min; Est GFR (Non-African American) 111.5 ml/min; Potassium 3.7 mmol/L (3.5-5.1)
--- NOTE | 2020-12-15 06:44 | Surgery Progress Note ---
Date of Service December 15, 2020 Assessment & Plan (1) Appendicitis: Plan: We will remove the NG tube started on clear liquids Continue with antibiotic therapy advance diet once her GI function returns Plan: We will reevaluate her later this morning most likely patient will be discharged would leave the Nilton drain in and have her come into the office on Tuesday for removal also like to keep her on oral antibiotics Augmentin for approximately 5 more days The path is still pending Admission and Anticipated Discharge Date Admission Date: December 10, 2020 Subjective She feels well overall tolerated diet had bowel movements liquid Denies any chills or fever Physical Exam Physical Exam: Was asleep when I walked in but easily awoke coherent without any complaints The abdomen is soft the incision without any drainage or cellulitis the Wan from subcu had been removed Nilton drainage minimal serosanguineous Results & Data ([facility]) Vital Signs (Past 12 Hours) Vital Signs Temp Pulse Resp BP Pulse Ox 12/14/20 23:42 36.9 C 62 16 123/77 100 PG Care Time/CCT Total # of Minutes Spent Total Time Spent with Patient: Total time spent is greater than 50% in coordination of care (as documented) at patient's floor/unit and/or counseling patient: Coding Level of Care Code None Diagnoses Appendicitis K35.890 Acute appendicitis type: other Appendicitis type: acute appendicitis (1) Appendicitis Acute appendicitis type: other Appendicitis type: acute appendicitis Qualified Code(s): K35.890 - Other acute appendicitis without perforation or gangrene
[2020-12-15] MEDS ORDERED: oxyCODONE/ACETAMINOPHEN 5mg/325mg TAB PO PRN (06:45)
[2020-12-15] MEDS: HEPARIN SOD 5,000 UNIT/0.5 ML VIAL SQ SCH (07:29)
--- NOTE | 2020-12-30 10:33 | Discharge Summary ---
Date of Service December 30, 2020 Principal Diagnosis acute appendicitis Discharge Exam awake/alert Gastrointestinal (Abdomen) Inspection/Auscultation: + abdominal surgical incision (c/d/i, no evidence of infection) Percussion/Palpation: abdomen soft Discharge Data Allergies Allergy/AdvReac Type Severity Reaction Status Date / Time No Known Allergies Allergy Verified 12/19/20 11:18 Consultations 12/09/20 19:39 ED Decision to Admit Stat Procedures Performed Operation Date: 12/09/20 21:15 Actual Procedures p Appendectomy, converted to Open Cecectomy(Not Applicable) - Owen Leon MD, FACS s Laparoscopic Appendectomy, converted to Open Cecectomy(Not Applicable) - Owen Leon MD, FACS Ordered Studies 12/09/20 17:05 CT abd pelvis IV con only Stat Hospital Course (1) Appendicitis: This is a 45y F who presented to the [facility] ED on 12/09/20 with complaints of abdominal pain for 2 weeks. She was evaluated elsewhere and was diagnosed with ovarian cysts, however since her pain persisted she reported to our ER for further workup. In the ER she underwent a CT a/p that revealed findings consistent with an acute perforated appendicitis. WBC 17. Patient was made NPO with IVF and started on IV abx. She was booked for the OR and underwent a laparoscopic converted to open cecectomy. The patient tolerated the procedure well, see op note for full details. She recovered in the PACU and was transferred to the med/surg unit in stable condition with a rashida drain, TORSTEN drain, NGT, and continued on IV abx. POD#1-#2 patient's NGT remained in place. Pain controlled with PRN IV medications. Activity encouraged. Patient voiding on her own. DVT prophylaxis started. On POD#3 (7/16) her NGT was removed and she started on clear liquids. POD#4 diet advanced to full liquids. Surgical TORSTEN drain with serosang output. Pain controlled on prn meds. POD#5 patient having + bowel function. Diet advanced to low fiber of which she tolerated well. On POD#6 patient was deemed stable for discharge to home and given a prescription to complete a course of oral antibiotics. She was discharged to home with lolita drain in place (education given) and was instructed to followup with Dr. Leon in clinic within 1 week. Total Time Total Time Spent Total Time Spent (In Minutes): 15 Discharge Plan Discharge Items Patient Disposition: Home - Self-Care Reason For Visit: APPY Discharge Diagnosis: appendicitis Activity: Per Instructions section Lifting: No more than 10 pounds Bathing Comment: may shower; no soaking in tubs/pools Exercise/Sports: Wait until after follow-up appointment Driving/Machine Use: wait at least 3 days; no driving while taking narcotics for pain Non-emergency contact: Surgeon Call non-emergency contact if: you have any medication questions, your symptoms worsen, your pain is not controlled, your pain is worsening, you have a fever, your temperature is above 101.5, your wound has increased redness, your wound has increased drainage and your wound pain has increased Follow-up/Referrals: Owen Leon MD, FACS [Surgeon] - 12/19/20 10:15 am ( Tuesday12/19/20 for check up and drain removal) Cande Barrett PA-C [Primary Care Provider] - Diet: Regular Addtl Attending Provider Instructions: Please care for your drain as you have been taught prior to discharge from the hospital. Empty drain 2-3x/daily and record output. You may change your abdominal dressing daily and as needed with dry 4x4 gauze and medical tape. Please call to schedule follow up in clinic this upcoming Tuesday (12/19/20) for drain removal. You also have surgical julián in place that will be removed at one of your follow up appointments. Please complete the full course of antibiotic prescribed to you. You may continue on a low fiber diet until your bowel movements normalize. Pending Studies at Discharge: Yes Studies:: surgical pathology Stand-Alone Forms: My [facility], Smoking Cessation Medications and DC Order Prescriptions: New oxycodone-acetaminophen [Percocet] 5-325 mg tablet 1 - 2 tab PO .q4-6h PRN (Reason: pain, for initial therapy, max 6 tabs per day) Qty: 10 RF: 0 amoxicillin-pot clavulanate [Augmentin] 875-125 mg tablet 1 tab PO Q12H Qty: 10 RF: 0 Continued norethindrone (contraceptive) [Gypsy] 0.35 mg tablet 0.35 mg PO DAILY RF: 0 Discharge Orders: Discharge Order (Routine); Ordered 12/15/20 Ordered By: Mavis Kulkarni/Other Patient Handouts: Low-Fiber Diet, Discharge Instructions for Open ... Admission Data Admit Date/Time: 12/10/20 00:05 Attending Provider: Owen Leon Admit Provider: Owen Leon Primary Care Provider: Cande Barrett Other Providers: Fior Gillespie Other Interventions: Discharge Summary Assessment (RN) Last Done: 12/15/20 10:38 Coding Level of Care Code D/C DAY MANAGEMENT <30 MINS Diagnoses Appendicitis K35.890 Acute appendicitis type: other Appendicitis type: acute appendicitis
== END 2020-12-15 15:26 | disposition home or self-care (01) | DRG 331 ==
LOC: ED 14:49 → OR 21:20 → 3E 21:21
DX: K35.32 Acute appendicitis with perforation, localized peritonitis, and gangrene, without abscess; Z79.3 Long term (current) use of hormonal contraceptives; Z20.822 Contact with and (suspected) exposure to COVID-19